=== PATIENT | male | born 1960 | race African-American/Black ===

== ENCOUNTER 2020-09-29 11:37 | Emergency (ER) | payer OTHER ==
[~2020-09-29] VITALS: Ht 180.3 cm; Wt 100.0 kg
[2020-09-29] MEDS ORDERED: TIMO5DRO27 EACHEYE (11:39)
[2020-09-29] MEDS ORDERED: PHEN100C4 PO (11:39)
[2020-09-29] MEDS ORDERED: LATA2.5D14 EACHEYE (11:39)
[2020-09-29 13:06] LABS: BASOPHILS % 0.7 % (0.0-2.0); EOSINOPHILS % 5.6 % (0.0-5.0); HEMATOCRIT. 48.6 % (42.0-52.0); LYMPHOCYTES % 17.9 % (20.0-50.0); MEAN CORPUSCULAR HEMOGLOBIN 29.6 pg (28.0-32.0); MEAN CORPUSCULAR VOLUME 90.1 fL (80.0-94.0); MONOCYTES % 6.9 % (2.0-8.0); NEUTROPHILS % 68.9 % (40.0-76.0); PLATELET 257 x1000/uL (130-400); RED CELL DISTRIBUTION WIDTH 13.2 % (11.6-14.6)
[2020-09-29 13:26] LABS: CHLORIDE 108 mEq/L (98-107)
[2020-09-29 13:30] LABS: ETHANOL BLOOD < 10 mg/dL
[2020-09-29] MEDS ORDERED: PHENYTOIN SODIUM EXTENDED 100MG CAPSULE PO ONE (15:00)
[2020-09-29 18:18] VITALS: BP 148/98
== END 2020-09-29 19:03 | disposition home or self-care (01) ==
LOC: ER 11:37
DX: H53.8 Other visual disturbances (principal); H40.9 Unspecified glaucoma; Z79.899 Other long term (current) drug therapy
CPT/HCPCS: 36415; 71045; 80053; 80320; 82140; 83605; 83880; 84484; 85025; 93005; 99285; Z7610; G0480